=== PATIENT | female | born 1930 | race Caucasian/White ===

== ENCOUNTER 2016-12-10 01:15 | Emergency (ER) | payer MEDICARE, BC ==
[~2016-12-10 01:15] MED LIST: ACIPHEX PO; ALBUTEROL; ANTIVERT; ASA5GR PO; ATEN25 PO; BONIVA PO; DCN100 PO; LIBRAX PO; MCZ25 PO; MIRALAXPKT PO; MULTIPLE VIT PO; P1 PO; PRAVAC PO; PREDNISONE2.5 MG PO; PRENATAL1 TAB PO; PROTONIX PO; PROVENT20 INH; VITAMIN D1000 UNI1 PO; [UNRECOGNIZED DRUG - OTHER]; [UNRECOGNIZED DRUG - OTHER] INH
[2016-12-10 02:53] LABS: BASOPHILS 0.5 %; BASOPHILS ABSOLUTE 0.04 10/3/uL (0.0-0.16); EOSINOPHILS 0.7 %; EOSINOPHILS ABSOLUTE 0.06 10/3/uL (0.0-0.53); HEMOGLOBIN 12.4 g/dL (12.0-16.0); IMMATURE GRANULOCYTES 0.2 %; IMMATURE GRANULOCYTES ABSOLUTE 0.02 10/3/uL (0.0-0.11); LYMPHOCYTES ABSOLUTE 1.95 10/3/uL (0.67-4.30); MEAN CORPUS HGB CONC 33.8 g/dL (32.0-36.0); MEAN CORPUSCULAR HEMOGLOB 29.5 pg (26.0-34.0); MEAN CORPUSCULAR VOLUME 87.4 fL (80-100); MEAN PLATELET VOLUME 10.8 fL (9.2-13.0); MONOCYTES 7.3 %; MONOCYTES ABSOLUTE 0.59 10/3/uL (0.21-1.20); NEUTROPHILS 67.3 %; NEUTROPHILS ABSOLUTE 5.47 10/3/uL (2.02-8.40); PLATELET COUNT 253 10/3/uL (150-400); RBC DISTRIBUTION WIDTH 13.9 % (12.0-16.0)
[2016-12-10 02:54] LABS: HEMATOCRIT 36.7 % (36.0-48.0); MANUAL DIFF NO %; WHITE BLOOD CELLS 8.1 10/3/uL (4.5-10.5)
[2016-12-10 03:03] LABS: INTERNATIONAL NORMAL RATI 1.1 UNITS (-); PARTIAL THROMBO TIME 28.9 SEC (22.5-37.2); PROTIME (NOT ORD) 13.7 SEC (12.0-14.5)
[2016-12-10 03:12] LABS: A/G RATIO 0.8 (0.7-1.9); ALKALINE PHOSPHATASE 71 U/L (45-117); BUN (BLOOD UREA NITROGEN) 10 MG/DL (6-23); CALCIUM, SERUM 8.6 MG/DL (8.5-10.4); CHLORIDE, SERUM 105 MMOL/L (96-112); CREATININE 0.82 MG/DL (0.55-1.02); GFR AFRICAN AMERICAN 76 ML/MIN (>=60); GFR NON AFRICAN AMERICAN 65 ML/MIN (>=60); GLOBULIN 3.9 G/DL (2.5-4.1); POTASSIUM, SERUM 3.6 MMOL/L (3.5-5.3); SGOT(AST) 16 U/L (5-40); SGPT(ALT) 16 U/L (5-65); SODIUM, SERUM 137 MMOL/L (135-148); TOTAL BILIRUBIN 0.4 MG/DL (0-1.2); TOTAL PROTEIN 6.9 G/DL (6.0-8.5); TROPONIN I 0.02 NG/ML (<0.05)
[2016-12-10 03:13] LABS: CO2 (CARBON DIOXIDE) 21 MMOL/L (24-34); GLUCOSE, SERUM 98 MG/DL (60-99)
[2016-12-10 03:29] LABS: ER CBC TAT 0 Hrs 10 Mins
[2016-12-10 03:57] LABS: ASCORBIC ACID (UR NOT ORDER) NEG (NEG); BILIRUBIN, URINE NEGATIVE (NEG); ER URINALYSIS TAT 0 Hrs 07 Mins; KETONE, URINE NEGATIVE (NEG); LEUKOCYTE ESTERASE(NOT OR NEG (NEG); NITRITE (URINE) NEG (NEG); WBC (NOT ORDERED) (RFLEX) 1 (0-5)
== END 2016-12-10 19:00 | disposition home or self-care (01) ==
LOC: ER 01:15
PROVIDERS: Specialist
DX: R42 Dizziness and giddiness (principal); R51 Headache; J45.909 Unspecified asthma, uncomplicated; I10 Essential (primary) hypertension; Z88.5 Allergy status to narcotic agent; Z88.8 Allergy status to other drugs, medicaments and biological substances; Z79.52 Long term (current) use of systemic steroids
CPT/HCPCS: 70450; 70544; 70551; 71010; 80053; 81001; 84484; 85025; 85610; 85730; 93005; 96374; 99285; A9270-GY; J2550